=== PATIENT | male | born 2000 | race Caucasian/White ===

== ENCOUNTER 2023-10-16 09:36 | Emergency (ER) | payer MEDICAID, SELFPAY ==
[2023-10-16 09:44] VITALS: BP 132/74
--- NOTE | 2023-10-16 10:37 | ED.MUSCINJ ---
HPI-Injury
General
Chief Complaint: Musculo-Skeletal Complaint
Source: patient
Exam Limitations: none
Time Seen by Provider: 10/16/23 09:50
History of Present Illness-Injury
Initial Injury comments:
22-year-old [id number] male presents complaining of left forearm and elbow pain starting 4 days ago after falling off his scooter. He did not hit his head. No other complaints at this time
Phy Exam
Physical Exam
Physical Exam:
General: Well-appearing male no acute respiratory distress
Musculoskeletal exam: Left arm swollen and tender mainly over the elbow over the radial aspect of the elbow. The shoulder is nontender. He has limited supination and pronation of his left wrist secondary to elbow pain. His wrist is nontender
Vascular: 2+ radial pulse left wrist
Injury Course
Orders/Labs/Results
Orders:
Orders
10/16/23 09:48
Forearm, Left 2 View [CR Forearm - Left 2 View] Urgent
Comment:
Reason For Exam: injury
10/16/23 10:36
CR Elbow - Left Min 3 Views Urgent
Comment:
Reason For Exam: pain after fall
10/16/23 11:15
Sling Left-Treatment ONCE
MDM/Problems Addressed
Differential Diagnosis Includes:
Left elbow and forearm pain after fall. Consider fracture versus dislocation versus sprain. X-rays of the forearm were initially ordered through triage which show no obvious acute finding however I am concerned for possible elbow injury. Elbow
x-rays are pending
*Critical Care Note
Total Time (30-74mins, 75-104mins- exclusive of procedures): Not Applicable
Update Note
Update Note:
X-rays were visualized of the elbow which demonstrate and confirm radial head fracture with extension into the neck. This is nondisplaced. Patient given a better sling. He was advised to follow-up with orthopedics for further evaluation
ED Attending Note
-
Portions of this chart may have been created with voice recognition software.� Occasional wrong word or��sound alike� substitutions may have occurred due to the inherent limitations of voice recognition software.
Discharge Plan
Departure
Patient Disposition: Home (Routine Discharge)
Date of Disposition: 10/16/23
Time of Disposition: 11:30
Patient with high blood pressure during this ER visit?: No
Discharge Problem:
Closed fracture of radial head
Instructions: Muscle and Bone Pain (DC)
Prescriptions:
No Action
No Current Medications
0
Referrals:
Maximo Hui MD [Active] -
NONE,* [Family Provider] -
Activity Restrictions/Additional Instructions:
Wear sling at all times. Use ibuprofen or Tylenol for pain. Follow-up with orthopedics
Interventions
Interventions:
*Risk Screen - Suicide Last Done: 10/16/23 09:44
*General Assessment Last Done: 10/16/23 09:44
*Neglect/Abuse Screening Last Done: 10/16/23 09:44
Discharge Date and Time
Print Language: MALAY
== END 2023-10-16 11:45 | disposition home or self-care (01) ==
LOC: EMR 09:36
PROVIDERS: EMERGENCY PHYSICIAN Emergency Medicine
DX: S52.125A Nondisplaced fracture of head of left radius, initial encounter for closed fracture (principal); M25.522 Pain in left elbow; M79.89 Other specified soft tissue disorders; V00.831A Fall from motorized mobility scooter, initial encounter
CPT/HCPCS: 99283; 73080; 73090; 99285